=== PATIENT | female | born 1950 ===

== ENCOUNTER 2018-11-23 09:42 | Outpatient (CLI) | payer SELFPAY | END 2018-11-23 09:43 | disposition home or self-care (01) | LOC: C.PAT 09:42 | DX: H25.13 Age-related nuclear cataract, bilateral (principal) ==

== ENCOUNTER 2018-12-07 06:06 | Day surgery (SDC) | payer SELFPAY ==
[2018-11-23 09:56] VITALS: BMI 27.9
[~2018-12-07 06:06] MED LIST: Ciprofloxacin 0.3% OPTH SOLN OD SCH; Cyclopentolate 1% Opth (2 ml) OD SCH; Ketorolac Tromethamine 0.5% Opth Soln (3 ml) OD SCH; Lactated Ringer's 500 ML IV ONE; Phenylephrine 2.5% Opht Soln OD SCH; Tropicamide 0.5% Opht Sol OD SCH
[2018-12-07] MEDS ORDERED: Povidone Iodine Ophthalmic 5% Soln ONE (08:16)
[2018-12-07] MEDS ORDERED: Lidocaine 2% MPF (5 ml) Inj ONE (08:16)
[2018-12-07] MEDS ORDERED: Tetracaine 0.5% Ophth (OR ONLY) ONE (08:16)
[2018-12-07] MEDS ORDERED: Carbachol 0.01% IO ONE (08:16)
[2018-12-07] MEDS ORDERED: Chondroitin/Hyaluronate Opth Syringe KIT (0.55 ml-0.5 ml) IO ONE (08:17)
[2018-12-07] MEDS ORDERED: Hyaluronidase Human, Recombi 150 U/ML VIAL ONE (08:17)
[2018-12-07] MEDS ORDERED: Lactated Ringer's 1,000 ML IV ONE (09:03)
[2018-12-07] MEDS ORDERED: Midazolam 2 MG/2 ML VIAL ONE (09:35)
[2018-12-07] MEDS: Tobramycin/Dexamethasone OPHT OINT ONE ×2 (09:49→10:01)
[2018-12-07 12:02] VITALS: BP 110/74; PULSE 71; RESP 18; TEMP 97.7; O2SAT 98
--- NOTE | 2018-12-07 13:22 | OP ---
PROCEDURE DATE: 12/07/2018 PREOPERATIVE DIAGNOSIS: Mature cataract, right eye. POSTOPERATIVE DIAGNOSIS: Mature cataract, right eye. PROCEDURE: Phacoemulsification, right eye, insertion of posterior chamber implant. SURGEON: Matt Jackson MD. TYPE OF ANESTHESIA: Local with IV sedation. DESCRIPTION OF PROCEDURE: The patient was brought into the operating room, placed in supine position, prepped and draped in the usual fashion for ophthalmic surgery. Lid speculum was inserted, lids and exposing globe. A side-port incision was made superiorly and inferiorly with a disposable sharp blade. Anterior chamber was filled with Viscoat. A near clear corneal incision was made temporally with a 2.75-mm keratome. Capsulorrhexis was then performed with Utrata forceps. Hydrodissection carried out with balanced salt solution. Nucleus was phacoemulsified. Remaining cortical fragments were removed with a split irrigation and aspiration system. The capsular sac was filled with Provisc. A posterior chamber lens was then injected into the capsular sac and rotated into horizontal position. Provisc was aspirated out of the anterior chamber. The pupil was constricted with Miochol. The wound was found to be watertight. Topical Betadine, Timoptic, and TobraDex ointment and pressure patch were applied. The patient tolerated the procedure well. Matt Jackson MD
== END 2018-12-07 11:18 | disposition home or self-care (01) ==
LOC: C.SDS 06:06
PROVIDERS: ATTEND Ophthalmology
DX: H26.8 Other specified cataract (principal); I10 Essential (primary) hypertension; E03.9 Hypothyroidism, unspecified; Z79.899 Other long term (current) drug therapy
CPT/HCPCS: 66984; J2250; J3010; J3470; J7120